=== PATIENT | male | born 1935 | race Caucasian/White ===

== ENCOUNTER 2018-06-19 21:23 | Inpatient (IN) | payer MEDICARE, OTHER | END 2018-06-22 14:56 | disposition home or self-care (01) | LOC: ED HOLD 06-20 00:30 → ER 21:23 → PCU 3S 06-20 12:22 | DX: I50.20 Unspecified systolic (congestive) heart failure (principal); J18.9 Pneumonia, unspecified organism; I25.119 Atherosclerotic heart disease of native coronary artery with unspecified angina pectoris; Z95.1 Presence of aortocoronary bypass graft ==

== ENCOUNTER 2018-08-24 08:43 | Inpatient (IN) | payer MEDICARE, OTHER | END 2018-08-25 16:41 | disposition home or self-care (01) | LOC: ER 08:43 → ED HOLD 10:28 → ORTHO 4S 18:04 | DX: L03.116 Cellulitis of left lower limb (principal); J90 Pleural effusion, not elsewhere classified; L03.115 Cellulitis of right lower limb; I48.91 Unspecified atrial fibrillation ==

== ENCOUNTER 2019-07-21 17:20 | Emergency (ER) | payer MEDICARE, OTHER ==
[~2019-07-21] VITALS: Ht 182.9 cm; Wt 85.9 kg
[~2019-07-21 17:20] MED LIST: BUSP5TAB3 PO; CARB15DR95 OP; CARV-49 PO; FURO-150 PO; MULT-38 PO; OMEP20CA15 PO; POTA10TA15 PO; REVE175V IH; SIMV20TA PO; WARF-55 PO; [UNRECOGNIZED DRUG - OTHER] PO
[2019-07-21 17:50] LABS: EOSINOPHILS # (AUTO) 0.1 X10'3 (0-0.9); EOSINOPHILS % (AUTO) 0.7 % (0-6); MEAN CORPUSCULAR VOLUME 93.2 FL (78-98)
[2019-07-21 17:51] LABS: BASOPHILS # (AUTO) 0.1 X10'3 (0-0.2); BASOPHILS % (AUTO) 1.1 % (0-1); HEMATOCRIT 44.6 % (42.0-52.0); HEMOGLOBIN 14.9 g/dl (14.0-17.9); LYMPHOCYTES % (AUTO) 62.5 % (21-51); MEAN CORPUSCULAR HEMOGLOBIN 31.2 PG (27.0-31.0); MEAN CORPUSCULAR HGB CONC 33.5 g/dL (33.0-36.5); MEAN PLATELET VOLUME 7.8 FL (7.4-10.4); MONOCYTES # (AUTO) 0.4 X10'3 (0-0.9); MONOCYTES % (AUTO) 3.8 % (2-12); NEUTROPHILS # (AUTO) 3.6 X10'3 (1.8-7.7); NEUTROPHILS % (AUTO) 31.9 % (42-75); PLATELET COUNT 148 X10'3 (140-440); RED BLOOD COUNT 4.78 X10'6 (4.70-6.10); RED CELL DISTRIBUTION WIDTH 15.7 % (11.5-14.5); WHITE BLOOD COUNT 11.3 X10'3 (4.5-11.0)
[2019-07-21 18:25] LABS: PARTIAL THROMBOPLASTIN TIME 30 SECONDS (22-32)
--- NOTE | 2019-07-21 18:27 | NUR ---
HE STATES HE DIDN'T TAKE HIS BP MED THIS MORNING.
[2019-07-21 18:44] LABS: ALANINE AMINOTRANSFERASE 14 U/L (12-78); ALBUMIN 3.7 G/DL (3.4-5.0); ALBUMIN/GLOBULIN RATIO 1.1 (1.1-1.5); ALKALINE PHOSPHATASE 69 IU/L (46-116); ANION GAP 8 (8-16); BILIRUBIN,TOTAL 1.2 MG/DL (0.1-1.0); BLOOD UREA NITROGEN 17 MG/DL (7-18); BUN/CREATININE RATIO 14.3 (5.4-32.0); CALCIUM 8.3 MG/DL (8.5-10.1); CHLORIDE 104 MMOL/L (99-107); CREATININE 1.19 MG/DL (0.60-1.10); GLUCOSE 76 MG/DL (70-104); SODIUM 137 MMOL/L (135-145); TOTAL CARBON DIOXIDE 24.6 MMOL/L (24-32); TOTAL PROTEIN 7.1 G/DL (6.4-8.2); eGFR 59 ML/MIN
[2019-07-21 18:47] LABS: ASPARTATE AMINO TRANSFERASE 28 U/L (10-37); POTASSIUM 4.9 MMOL/L (3.5-5.1)
[2019-07-21 18:54] LABS: PLATELET ESTIMATE NORMAL; SMUDGE CELLS 2+; TOTAL CELLS COUNTED 100
[2019-07-21 19:17] VITALS: BP 133/73
== END 2019-07-21 19:18 | disposition home or self-care (01) ==
LOC: ER 17:20
DX: R07.89 Other chest pain (principal); I48.91 Unspecified atrial fibrillation; I25.10 Atherosclerotic heart disease of native coronary artery without angina pectoris; I10 Essential (primary) hypertension; I25.2 Old myocardial infarction; Z95.1 Presence of aortocoronary bypass graft; Z98.890 Other specified postprocedural states; Z88.0 Allergy status to penicillin; Z79.01 Long term (current) use of anticoagulants; Z79.899 Other long term (current) drug therapy
CPT/HCPCS: 36415; 71045; 80053; 83735; 83880; 84484; 85025; 85610; 85730; 93005; 99285

== ENCOUNTER 2019-10-14 18:42 | Observation (INO) | payer MEDICARE, OTHER ==
[~2019-10-14] VITALS: Ht 188 cm; Wt 84.1 kg
[~2019-10-14 18:42] MED LIST changes: +CARB15DR95 EACHEYE; -CARB15DR95 OP; -REVE175V IH; +REVE175V NEB
[2019-10-14] MEDS ORDERED: aspirin 81mg tab.chew PO ONE (18:45)
--- NOTE | 2019-10-14 18:51 | NUR ---
[facility] PHONE [phone]. DAUGHTER YOLANDA [facility] PHONE . CALL FOR [facility] AND INFO
[2019-10-14 19:40] LABS: BASOPHILS # (AUTO) 0.1 X10'3 (0-0.2); EOSINOPHILS # (AUTO) 0.1 X10'3 (0-0.9); HEMOGLOBIN 14.5 g/dl (14.0-17.9); MONOCYTES # (AUTO) 0.8 X10'3 (0-0.9); NEUTROPHILS # (AUTO) 3.3 X10'3 (1.8-7.7); PLATELET COUNT 157 X10'3 (140-440)
[2019-10-14 19:42] LABS: BASOPHILS % (AUTO) 0.8 % (0-1); HEMATOCRIT 43.9 % (42.0-52.0); LYMPHOCYTES # (AUTO) 8.8 X10'3 (1.1-4.8); LYMPHOCYTES % (AUTO) 67.1 % (21-51); MEAN CORPUSCULAR HEMOGLOBIN 31.5 PG (27.0-31.0); MEAN CORPUSCULAR HGB CONC 33.1 g/dL (33.0-36.5); MEAN CORPUSCULAR VOLUME 95.3 FL (78-98); NEUTROPHILS % (AUTO) 25.1 % (42-75); RED BLOOD COUNT 4.61 X10'6 (4.70-6.10); RED CELL DISTRIBUTION WIDTH 15.7 % (11.5-14.5); WHITE BLOOD COUNT 13.1 X10'3 (4.5-11.0)
[2019-10-14] MEDS ORDERED: ASPI81TA52 PO (20:00)
[2019-10-14] MEDS ORDERED: OCUVITE PO (20:00)
[2019-10-14] MEDS ORDERED: ALBU18HF2 INH (20:00)
[2019-10-14 20:19] LABS: ALANINE AMINOTRANSFERASE 13 U/L (12-78); ALBUMIN 3.7 G/DL (3.4-5.0); ALBUMIN/GLOBULIN RATIO 1.1 (1.1-1.5); ALKALINE PHOSPHATASE 67 IU/L (46-116); ANION GAP 9 (8-16); ASPARTATE AMINO TRANSFERASE 19 U/L (10-37); BILIRUBIN,TOTAL 0.8 MG/DL (0.1-1.0); BLOOD UREA NITROGEN 16 MG/DL (7-18); BUN/CREATININE RATIO 11.9 (5.4-32.0); CALCIUM 8.5 MG/DL (8.5-10.1); CHLORIDE 103 MMOL/L (99-107); CREATININE 1.34 MG/DL (0.60-1.10); GLUCOSE 88 MG/DL (70-104); SODIUM 140 MMOL/L (135-145); TOTAL CARBON DIOXIDE 28.4 MMOL/L (24-32); eGFR 51 ML/MIN
[2019-10-14 20:25] LABS: MAGNESIUM 2.3 MG/DL (1.5-2.4)
[2019-10-14 20:28] LABS: PARTIAL THROMBOPLASTIN TIME 28 SECONDS (22-32)
[2019-10-14 22:23] LABS: PLATELET ESTIMATE NORMAL; SMUDGE CELLS 2+; TOTAL CELLS COUNTED 100
[2019-10-14] MEDS ORDERED: mag hydrox/Alum hydrox/simeth 30ml oral suspension PO PRN (23:25)
[2019-10-14] MEDS ORDERED: ipratropium/albuterol 3ml nebule NEB PRN (23:25)
[2019-10-14] MEDS ORDERED: magnesium 4gm in 100ml NS 100 ML IV PRN (23:25)
[2019-10-14] MEDS ORDERED: ondansetron/PF 4mg/2ml inj IV PRN (23:25)
[2019-10-14] MEDS ORDERED: potassium CL 10mEq/100ml bag 100 ML IV PRN ×2 (23:25)
[2019-10-14] MEDS ORDERED: magnesium hydroxide 30ml (MOM) UD suspension PO PRN (23:25)
[2019-10-14] MEDS ORDERED: magnesium 2GM in 50ml NS 50 ML IV PRN (23:25)
[2019-10-14] MEDS ORDERED: polyvinyl alcohol ophthalmic drops 15ml bottle EACHEYE PRN (23:25)
[2019-10-14] MEDS ORDERED: acetaminophen 325mg tablet PO PRN (23:25)
[2019-10-14] MEDS ORDERED: potassium Cl 20 mEq SR tablet PO PRN ×2 (23:25)
[2019-10-14] MEDS ORDERED: aminophylline 250mg/10ml inj. IV PRN (23:30)
[2019-10-14] MEDS ORDERED: metoprolol tartrate 1mg/ml inj IV PRN (23:30)
[2019-10-14] MEDS ORDERED: regadenoson 0.4mg/5ml syringe IV ONE (23:30)
[2019-10-14] MEDS ORDERED: nitroGLYCERIN 0.4mg SUBLingual tab SL PRN (23:30)
[2019-10-15] VITALS (10 sets, daily range): BP systolic 138–168; BP diastolic 65–89
--- NOTE | 2019-10-15 00:20 | NUR ---
pt arrived to PCU unit, pt denies any chest pain at this time, pt not in any respiratory distress at this time, all needs addressed, will continue to monitor pt closely
[2019-10-15 01:49] LABS: EOSINOPHILS # (AUTO) 0.1 X10'3 (0-0.9); HEMOGLOBIN 14.7 g/dl (14.0-17.9); PLATELET COUNT 134 X10'3 (140-440)
[2019-10-15 01:51] LABS: BASOPHILS # (AUTO) 0.1 X10'3 (0-0.2); BASOPHILS % (AUTO) 0.4 % (0-1); EOSINOPHILS % (AUTO) 0.8 % (0-6); HEMATOCRIT 44.6 % (42.0-52.0); LYMPHOCYTES # (AUTO) 10.4 X10'3 (1.1-4.8); LYMPHOCYTES % (AUTO) 78.2 % (21-51); MEAN CORPUSCULAR HEMOGLOBIN 31.3 PG (27.0-31.0); MEAN CORPUSCULAR VOLUME 94.7 FL (78-98); MEAN PLATELET VOLUME 8.1 FL (7.4-10.4); MONOCYTES # (AUTO) 0.6 X10'3 (0-0.9); MONOCYTES % (AUTO) 4.2 % (2-12); NEUTROPHILS # (AUTO) 2.2 X10'3 (1.8-7.7); NEUTROPHILS % (AUTO) 16.4 % (42-75); RED BLOOD COUNT 4.71 X10'6 (4.70-6.10); RED CELL DISTRIBUTION WIDTH 15.4 % (11.5-14.5); WHITE BLOOD COUNT 13.3 X10'3 (4.5-11.0)
[2019-10-15 02:05] LABS: ALANINE AMINOTRANSFERASE 12 U/L (12-78); ALBUMIN 3.6 G/DL (3.4-5.0); ALBUMIN/GLOBULIN RATIO 1.1 (1.1-1.5); ALKALINE PHOSPHATASE 62 IU/L (46-116); ANION GAP 6 (8-16); ASPARTATE AMINO TRANSFERASE 17 U/L (10-37); BILIRUBIN,TOTAL 1.1 MG/DL (0.1-1.0); BLOOD UREA NITROGEN 14 MG/DL (7-18); BUN/CREATININE RATIO 10.9 (5.4-32.0); CALCIUM 8.7 MG/DL (8.5-10.1); CHLORIDE 105 MMOL/L (99-107); CREATININE 1.28 MG/DL (0.60-1.10); GLUCOSE 94 MG/DL (70-104); POTASSIUM 3.8 MMOL/L (3.5-5.1); SODIUM 141 MMOL/L (135-145); TOTAL CARBON DIOXIDE 29.9 MMOL/L (24-32); TOTAL PROTEIN 6.8 G/DL (6.4-8.2); eGFR 54 ML/MIN
[2019-10-15 02:08] LABS: MAGNESIUM 2.2 MG/DL (1.5-2.4)
[2019-10-15 03:22] LABS: PLATELET ESTIMATE DECREASED; SMUDGE CELLS 2+; TOTAL CELLS COUNTED 100
--- NOTE | 2019-10-15 06:16 | NUR ---
Problems reprioritized. Patient report given, questions answered & plan of care reviewed with Hubert WRIGHT.
--- NOTE | 2019-10-15 06:35 | NUR ---
Patient in room PCU 3018. I have received report from Melanie and had the opportunity to ask questions and assume patient care.
[2019-10-15] MEDS ORDERED: pantoprazole 40mg Tablet.DR PO SCH (08:00)
[2019-10-15] MEDS ORDERED: K and/or MAG REPLACEMENT MC SCH (08:00)
[2019-10-15] MEDS ORDERED: carvedilol 6.25mg tablet PO SCH (08:00)
[2019-10-15] MEDS ORDERED: multivitamins, therapeutics tablet PO SCH (08:00)
[2019-10-15] MEDS ORDERED: busPIRone 5mg tablet PO SCH (08:00)
[2019-10-15] MEDS ORDERED: potassium chloride 10mEq ER tablet PO SCH (08:00)
[2019-10-15] MEDS ORDERED: aspirin 81mg tablet.DR PO SCH (08:00)
[2019-10-15] MEDS ORDERED: furosemide 20MG tablet PO SCH (08:00)
[2019-10-15] MEDS ORDERED: beta-carotene(A) w/C & E + minerals tab PO SCH (08:00)
[2019-10-15] MEDS ORDERED: REVEFENACIN IH SCH (08:00)
--- NOTE | 2019-10-15 15:26 | NUR ---
Safe DC. All personal items with patient. Left hospital with family in personal vehicle.
[2019-10-15] MEDS ORDERED: warfarin 7.5mg tablet PO ONE (21:00)
[2019-10-15] MEDS ORDERED: atorvastatin 10mg tablet PO SCH (21:00)
[2019-10-15] MEDS ORDERED: warfarin 5mg tablet PO ONE (21:00)
== END 2019-10-15 15:25 | disposition home or self-care (01) ==
LOC: ER 18:42 → INTOOBSV 23:24 → ED HOLD 23:24 → PCU 3S 10-15 00:28
PROVIDERS: ADMIT Family Medicine; ATTEND Family Medicine
DX: R07.89 Other chest pain (principal); I48.20 Chronic atrial fibrillation, unspecified; I10 Essential (primary) hypertension; I25.10 Atherosclerotic heart disease of native coronary artery without angina pectoris; I25.2 Old myocardial infarction; D72.829 Elevated white blood cell count, unspecified; N28.89 Other specified disorders of kidney and ureter; Z85.6 Personal history of leukemia; Z85.528 Personal history of other malignant neoplasm of kidney; Z95.1 Presence of aortocoronary bypass graft; Z90.5 Acquired absence of kidney; Z79.01 Long term (current) use of anticoagulants; Z79.82 Long term (current) use of aspirin; Z79.899 Other long term (current) drug therapy; Z88.0 Allergy status to penicillin
CPT/HCPCS: 36415; 71045; 78452; 80053; 83735; 83880; 84484; 85025; 85610; 85730; 87081; 93005; 93017; 94760; 99285; A9500; G0378; J2785

== ENCOUNTER 2021-05-28 12:13 | Emergency (ER) | payer MEDICARE, OTHER ==
[~2021-05-28] VITALS: Ht 185.4 cm; Wt 82.7 kg
[~2021-05-28 12:13] MED LIST changes: +ALBU18HF2 INH; +ASPI81TA52 PO; +CARB-226 EACHEYE; -CARB15DR95 EACHEYE; +OCUVITE PO; -[UNRECOGNIZED DRUG - OTHER] PO
[2021-05-28 13:08] LABS: BASOPHILS % (AUTO) 0.3 % (0-1); EOSINOPHILS % (AUTO) 0.4 % (0-6); HEMATOCRIT 36.4 % (42.0-52.0); HEMOGLOBIN 12.2 g/dl (14.0-17.9); LYMPHOCYTES # (AUTO) 5.6 X10'3 (1.1-4.8); LYMPHOCYTES % (AUTO) 58.8 % (21-51); MEAN CORPUSCULAR HEMOGLOBIN 31.2 PG (27.0-31.0); MEAN CORPUSCULAR HGB CONC 33.6 g/dL (33.0-36.5); MEAN CORPUSCULAR VOLUME 92.9 FL (78-98); MEAN PLATELET VOLUME 7.7 FL (7.4-10.4); MONOCYTES # (AUTO) 0.5 X10'3 (0-0.9); MONOCYTES % (AUTO) 5.6 % (2-12); NEUTROPHILS # (AUTO) 3.3 X10'3 (1.8-7.7); NEUTROPHILS % (AUTO) 34.9 % (42-75); PLATELET COUNT 148 X10'3 (140-440); RED BLOOD COUNT 3.91 X10'6 (4.70-6.10); RED CELL DISTRIBUTION WIDTH 17.2 % (11.5-14.5); WHITE BLOOD COUNT 9.5 X10'3 (4.5-11.0)
[2021-05-28 13:27] LABS: ALANINE AMINOTRANSFERASE 14 U/L (12-78); ALBUMIN 3.2 G/DL (3.4-5.0); ALKALINE PHOSPHATASE 62 IU/L (46-116); ANION GAP 4 (8-16); ASPARTATE AMINO TRANSFERASE 16 U/L (10-37); BILIRUBIN,TOTAL 1.2 MG/DL (0.1-1.0); BLOOD UREA NITROGEN 22 MG/DL (7-18); BUN/CREATININE RATIO 19.6 (5.4-32.0); CALCIUM 8.7 MG/DL (8.5-10.1); CHLORIDE 105 MMOL/L (99-107); CREATININE 1.12 MG/DL (0.60-1.10); GLUCOSE 98 MG/DL (70-104); POTASSIUM 5.5 MMOL/L (3.5-5.1); SODIUM 138 MMOL/L (135-145); TOTAL CARBON DIOXIDE 29.2 MMOL/L (24-32); TOTAL PROTEIN 6.5 G/DL (6.4-8.2); eGFR 63 ML/MIN
[2021-05-28 13:54] LABS: TOTAL CELLS COUNTED 200
[2021-05-28 13:55] LABS: PLATELET ESTIMATE NORMAL; SMUDGE CELLS FEW
[2021-05-28 15:07] VITALS: BP 151/76
== END 2021-05-28 14:50 | disposition home or self-care (01) ==
LOC: ER 12:14
DX: R07.89 Other chest pain (principal); I10 Essential (primary) hypertension; I48.91 Unspecified atrial fibrillation; I25.10 Atherosclerotic heart disease of native coronary artery without angina pectoris; I25.2 Old myocardial infarction; Z98.890 Other specified postprocedural states; Z85.9 Personal history of malignant neoplasm, unspecified; Z72.89 Other problems related to lifestyle; Z88.0 Allergy status to penicillin; Z79.82 Long term (current) use of aspirin; Z79.899 Other long term (current) drug therapy
CPT/HCPCS: 36415; 71045; 80053; 83880; 84484; 85007; 85025; 85610; 93005; 99285